=== PATIENT | male | born 1970 | race Caucasian/White ===

== ENCOUNTER 2021-03-31 13:17 | Emergency (ER) | payer OTHER ==
[2021-03-31 13:49] VITALS: BP 146/87; PULSE 66; RESP 20; TEMP 97.2
--- NOTE | 2021-03-31 14:19 | XR ---
Left shoulder HISTORY: Trauma 3 weeks prior and pain 4 views the left shoulder Bone mineralization is maintained. Question some superior displacement of distal clavicle in relation to the acromion. Left lung apex as visualized is normal. IMPRESSION: Correlate for acromial clavicular separation.
[2021-03-31] MEDS ORDERED: KETOROLAC 15 MG/ML 1 ML VIAL IM STA (14:57)
--- NOTE | 2021-03-31 15:00 | ED ---
General Adult HPI - General Chief complaint: Extremity Injury, Upper Stated complaint: Lt shoulder pain Time Seen by Provider: 03/31/21 14:47 Source: patient, RN notes reviewed Mode of arrival: ambulatory Limitations: no limitations - History of Present Illness Initial comments: Patient is a 50-year-old male that presents to the emergency department com plaining of left shoulder pain. 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 He notes that for the past all weeks he noted he was having pain in his left shoulder and upper back with radicular symptoms on the left arm. Patient notes that he's been holding it close to his body not using it for the past all weeks and the pain has improved. He notes numbness and tingling is improved also. Patient denied any obvious injury or trauma to the left arm or shoulder. He was otherwise well-appearing. He denied any chest pain first breath headache nausea vomiting diarrhea constipation fever fatigue chills. - Related Data Allergies Allergy/AdvReac Type Severity Reaction Status Date / Time No Known Allergies Allergy Verified 03/31/21 13:49 Review of Systems ROS Statement: Those systems with pertinent positive or pertinent negative responses have been documented in the HPI. ROS Other: All systems not noted in ROS Statement are negative. Past Medical History Past Medical History: No Reported History History of Any Multi-Drug Resistant Organisms: None Reported Additional Past Surgical History / Comment(s): Inguinal hernia Past Psychological History: No Psychological Hx Reported Smoking Status: Current every day smoker Past Alcohol Use History: None Reported Past Drug Use History: Marijuana General Exam Limitations: no limitations General appearance: alert, in no apparent distress Head exam: Present: atraumatic, normocephalic, normal inspection Eye exam: Present: normal appearance, PERRL, EOMI. Absent: scleral icterus, conjunctival injection, periorbital swelling Neck exam: Present: normal inspection Respiratory exam: Present: normal lung sounds bilaterally. Absent: respiratory distress, wheezes, rales, rhonchi, stridor Cardiovascular Exam: Present: regular rate, normal rhythm, normal heart sounds. Absent: systolic murmur, diastolic murmur, rubs, gallop, clicks Left Shoulder Exam: Present: normal inspection, full ROM, tenderness (Over the before meals joint) Back exam: Present: normal inspection, tenderness (Left upper back/trapezius area) Neurological exam: Present: alert, oriented X3 Psychiatric exam: Present: normal affect, normal mood Skin exam: Present: warm, dry, intact, normal color. Absent: rash Course Vital Signs 03/31/21 13:46 Temperature 97.2 F L Pulse Rate 66 Respiratory 20 Rate Blood Pressure 146/87 O2 Sat by Pulse 97 Oximetry Medical Decision Making - Medical Decision Making 50-year-old male complaining of left shoulder pain with radicular symptoms. X-ray left shoulder, 15 mg of Toradol, sling ordered. X-ray shows mild before meals joint separation. Patient was informed that wear a sling and rest ice compress elevation as treatment of choice. Case discussed with Dr. Perez, patient can discharge home with follow-up to orthopedics as needed. Disposition Clinical Impression: Separation of left acromioclavicular joint Disposition: HOME SELF-CARE Condition: Stable Instructions (If sedation given, give patient instructions): Shoulder Sprain (ED) Additional Instructions: Please return to the Emergency Department if symptoms worsen or any other concerns. Follow-up primary care 1-2 days. Follow-up with orthopedics as needed. Is patient prescribed a controlled substance at d/c from ED?: No Referrals: None,Stated [Primary Care Provider] - 1-2 days Darnell King PAC [PHYSICIAN SENIOR SYSTEMS ARCHITECT] - 1-2 days Time of Disposition: 15:11
== END 2021-03-31 15:24 | disposition home or self-care (01) ==
LOC: EC 13:17
DX: S43.102A Unspecified dislocation of left acromioclavicular joint, initial encounter (principal); F17.200 Nicotine dependence, unspecified, uncomplicated; F12.90 Cannabis use, unspecified, uncomplicated; X58.XXXA Exposure to other specified factors, initial encounter
CPT/HCPCS: 99283